=== PATIENT | male | born 1955 | race Asian ===

== ENCOUNTER 2017-05-19 11:13 | Day surgery (SDC) | payer MEDICAID ==
[2017-05-19] MEDS ORDERED: LIDOCAINE 1% 2 ML INJ ID PRN (11:34)
[2017-05-19] MEDS ORDERED: LR 1,000 ML IV ONE (11:34)
[2017-05-19 12:37] VITALS: PULSE 65
--- NOTE | 2017-05-19 12:48 | PDANEPAE ---
ANE Past Medical History - Cardiovascular History Hx Hypertension: Yes Hx Arrhythmias: No Hx Chest Pain: No Hx Coronary Artery / Peripheral Vascular Disease: No Hx CHF / Valvular Disease: No Hx Palpitations: No Cardiovascular History Comment: pcp monitors bp meds - Pulmonary History Hx COPD: No Hx Asthma/Reactive Airway Disease: No Hx Recent Upper Respiratory Infection: No Hx Oxygen in Use at Home: No Hx Sleep Apnea: No Sleep Apnea Screening Result - Last Documented: Positive - Neurologic History Hx Cerebrovascular Accident: No Hx Seizures: No Hx Dementia: No Neurologic History Comment: spinal cord injury- no injury noted just started one day and he went to the er 07/17/2003. pt is a paraplegic - Endocrine History Hx Diabetes: No Endocrine History Comment: type 2 - Renal History Hx Renal Disorders: Yes Renal History Comment: neurogenic bladder uses suprapubic catheter. left kidney is missing- since - Liver History Hx Hepatic Disorders: No - Neurological & Psychiatric Hx Hx Neurological and Psychiatric Disorders: No Neurological / Psychiatric History Comment: peripheral neuropathy. depression - Cancer History Hx Cancer: No - Congenital Disorder History Hx Congenital Disorders: No - GI History Hx Gastrointestinal Disorders: Yes Gastrointestinal History Comment: uses bowel program q3 days to help with regularity - Other Health History Other Health History: none - Chronic Pain History Chronic Pain: Yes (occ burning pain around chest from spinal cord injury) - Surgical History Prior Surgeries: 2003 back sx T7/8 spinal cord to remove blood clot. 2009 R ORIF femur fracture ANE Review of Systems Review of Systems: - Exercise capacity METS (RN): 1 METS ANE Patient History - Allergies Allergies/Adverse Reactions: No Known Allergies Allergy (Verified 04/15/17 14:09) - Home Medications Home Medications: Baclofen BID 06/06/09 [Last Taken 05/18/17 17:00] Aspirin 81mg (*) 04/15/17 [Last Taken 05/19/17 08:00] LYRICA TID 04/15/17 [Last Taken 05/19/17 08:00] Losartan Potassium 04/15/17 [Last Taken 05/19/17 08:00] Pravastatin Sodium 04/15/17 [Last Taken 05/17/17] - NPO status NPO Since - Liquids (Date): 05/18/17 NPO Since - Liquids (Time): 19:00 NPO Since - Solids (Date): 05/17/17 NPO Since - Solids (Time): 17:00 - Smoking Hx Smoking Status: Never smoked - Family Anes Hx Family Hx Anesthesia Complications: unknown ANE Labs/Vital Signs - Vital Signs Blood Pressure: 116/73 Heart Rate: 65 Respiratory Rate: 16 O2 Sat (%): 96 Height: 195.58 cm Weight: 74.843 kg ANE Physical Exam - Airway Neck exam: FROM Mallampati Score: Class 2 Mouth exam: dentures - Pulmonary Pulmonary: no respiratory distress, no rales or rhonchi, clear to auscultation - Cardiovascular Cardiovascular: regular rate and rhythym, no murmur, rub, or gallop - ASA Status ASA Status: III ANE Anesthesia Plan Anesthesia Plan: GA with mask
[2017-05-19] MEDS ORDERED: PROPOFOL 200 MG/20 ML VIAL ONE (13:10)
[2017-05-19] MEDS ORDERED: PROMETHAZINE HCL 25 MG/ML INJ IVP PRN (13:23)
[2017-05-19] MEDS ORDERED: LR 500 ML IV PRN (13:23)
[2017-05-19] MEDS ORDERED: ONDANSETRON 4 MG/2 ML VIAL IVP PRN (13:23)
[2017-05-19] MEDS ORDERED: fentaNYL 100 MCG/2 ML INJ IVP PRN (13:23)
[2017-05-19] MEDS ORDERED: NALOXONE HCL 0.4 MG/ML INJ IVP PRN (13:23)
[2017-05-19] MEDS ORDERED: INDOMETHACIN 50 MG SUPP PR PRN (13:54)
--- NOTE | 2017-05-19 13:54 | PDGENHP ---
History & Physical Chief Complaint: screening History of Present Illness: 62 year old male presents for screening colonoscopy. Pertinent Past, Social, Family History: SoHx: no cigs. PMHx: paraplegia, one kideny. FaMHx: No crc Relevant Physical Exam: HEENT: anicteric. CV: RRR +s1s2. Lungs: CTAB. Abd: soft, nt, + suprapubic catheter Cardiorespiratory Assessment: ASA 3
--- NOTE | 2017-05-19 13:59 | POSTANESTH ---
Post Anesthetic Evaluation Cardiovascular Status: Normal, Stable, Similar to Pre-Op Cond Respiratory Status: Normal, Stable, Similar to Pre-op Cond. Level of Consciousness/Mental Status: Can Participate in Eval, Moderately Sleepy Pain Control: Adequate, Prn Tx Ordered Nausea/Vomiting Control: Adequate, Prn Tx Ordered Complications Possibly Related to Anesthesia: None Noted
[2017-05-19] MEDS ORDERED: NS 500 ML IV SCH (14:00)
--- NOTE | 2017-05-19 14:10 | GIREPORT ---
[facility] - Endoscopy Department Patient Name: Mulugeta Giraldo Procedure Date: 05/19/2017 1:16 PM Patient Type: Outpatient Attending MD/ ER Physician: Ramos Pro MD Procedure: Colonoscopy Indications: Screening for colorectal malignant neoplasm Patient Profile: 62 year old male presents for screening colonoscopy. Providers: Ramos Pro MD Medicines: Monitored Anesthesia Care Complications: No immediate complications. Estimated blood loss: None. Description of Procedure: After obtaining informed consent, the scope was passed under direct vision. Throughout the proce dure, the patient's blood pressure, pulse, and oxygen saturations were monitored continuously. The Colonoscope with irrigation channel was introduced through the anus and advanced to the cecum, identified by appendiceal orifice and ileocecal valve. The colonoscopy was performed without difficulty. The patient tolerated the procedure well. The quality of the bowel preparation was g ood. The ileocecal valve, appendiceal orifice, and rectum were photographed. Findings: The perianal and digital rectal examinations were normal. Pertinent negatives include no palpabl e rectal lesions. A few small-mouthed diverticula were found in the sigmoid colon. Estimated Blood Loss: Estimated blood loss: none. Post Op Diagnosis: - Diverticulosis in the sigmoid colon. - No specimens collected. Recommendation: - Discharge patient to home (with escort). - Resume previous diet. - Continue present medications. - Repeat colonoscopy in 10 years for surveillance based on pathology re rohit. Attending Participation: I personally performed the entire procedure. Ramos Pro MD Ramos Pro MD 05/19/2017 2:10:20 PM Number of Addenda: 0 Note Initiated On: 05/19/2017 1:16 PM Total Procedure Duration Time 0 hours 30 minutes 48 seconds [email or web address]
[2017-05-19 15:42] VITALS: BP 120/84; RESP 15; O2SAT 99
[2017-05-19 16:19] VITALS: TEMP 97.5
== END 2017-05-19 16:00 | disposition home or self-care (01) ==
LOC: FSGY 11:13
PROVIDERS: ATTEND Internal Medicine Gastroenterology
PROC: 0DJD8ZZ Inspection of Lower Intestinal Tract, Via Natural or Artificial Opening Endoscopic (ICD-10-PCS; principal; 2017-05-19 12:45)
DX: Z12.11 Encounter for screening for malignant neoplasm of colon (principal); K57.30 Diverticulosis of large intestine without perforation or abscess without bleeding; G82.20 Paraplegia, unspecified; Q60.0 Renal agenesis, unilateral; I10 Essential (primary) hypertension; E11.9 Type 2 diabetes mellitus without complications; N31.9 Neuromuscular dysfunction of bladder, unspecified
CPT/HCPCS: J2704

== ENCOUNTER 2017-11-28 11:08 | Observation (INO) | payer MEDICAID ==
[2017-11-28 12:12] LABS: PLATELET COUNT 181 10^3/uL (150-400)
--- NOTE | 2017-11-28 13:24 | EDPHY ---
H & P Stated Complaint: abd pain Time Seen by Provider: 11/28/17 11:42 HPI/ROS: CHIEF COMPLAINT: Abdominal pain HISTORY OF PRESENT ILLNESS: The patient presents the ED with a several day history of abdominal pain. The patient has a history of paraplegia from a spinal clot. He has been immobilized in wheelchair for some time. The patient has a neurogenic bladder and a chronic suprapubic catheter. The patient does have problems with chronic constipation and is on a fairly aggressive outpatient bowel regimen. The patient denies any fever. He complains of intermittent crampy abdominal pain. He reports he is having increasing frequency of pain which he describes as a sharp epigastric pain which radiates to the right and left quadrant. REVIEW OF SYSTEMS: A comprehensive 10 point review of systems is otherwise negative aside from elements mentioned in the history of present illness. Source: Patient - Personal History Current Tetanus/Diphtheria Vaccine: Unsure Current Tetanus Diphtheria and Acellular Pertussis (TDAP): Unsure Tetanus Vaccine Date: 20 YEARS AGO - Medical/Surgical History Hx Asthma: No Hx Chronic Respiratory Disease: No Hx Diabetes: No Hx Cardiac Disease: No Hx Renal Disease: No Hx Cirrhosis: No Hx Alcoholism: No Hx HIV/AIDS: No Hx Splenectomy or Spleen Trauma: No Other PMH: spinal cord injury - Social History Smoking Status: Never smoked - Physical Exam Exam: General Appearance: Alert, no distress Eyes: Pupils equal and round no pallor or injection ENT, Mouth: Mucous membranes moist Respiratory: There are no retractions, lungs are clear to auscultation Cardiovascular: Regular rate and rhythm Gastrointestinal: Abdomen is soft and nontender, no masses, bowel sounds normal , suprapubic catheter Neurological: Chronic lower extremity weakness and sensory changes consistent with his known spinal cord injury Skin: Warm and dry, no rashes Musculoskeletal: Neck is supple nontender Extremities: symmetrical, full range of motion Constitutional: Initial Vital Signs Temperature (C) 38 C 11/28/17 11:20 Heart Rate 104 H 11/28/17 11:20 Respiratory Rate 16 11/28/17 11:20 Blood Pressure 130/78 H 11/28/17 11:20 O2 Sat (%) 97 11/28/17 11:20 O2 Delivery Mode Room Air Allergies/Adverse Reactions: No Known Allergies Allergy (Verified 11/28/17 11:20) Home Medications: Medication Instructions Recorded Baclofen [Baclofen 20 mg (*)] 20 mg PO TID #0 06/06/09 Aspirin [Aspirin 81mg (*)] 81 mg PO DAILY #0 04/15/17 Losartan Potassium [Cozaar 25 mg 25 mg PO DAILY #0 04/15/17 (*)] Pravastatin Sodium [Pravachol] 40 mg PO HS #0 04/15/17 Pregabalin [Lyrica 100mg (*)] 200 mg PO TID #0 04/15/17 Tears/Dextran 70/Hypromellose 1 drop EACHEYE Q2 PRN 11/28/17 [Natural Balance Tears (*)] Medical Decision Making - Diagnostics Imaging Results: Imaging Impressions Abdomen X-Ray 11/28/17 11:44 Impression: 1. Mild to moderate constipation suspected. 2. Gas present within mildly prominent loops of small bowel left mid abdomen. This is nonspecific. Early changes of partial SBO are felt to be possible but less likely. If indicated, consider follow-up. Abdomen CT 11/28/17 13:24 Impression: 1. Constipation. 2. No CT evidence of appendicitis, abscess or bowel obstruction. 3. Atrophic left kidney. No right nephrolithiasis or hydronephrosis. 4. No abdominal abscess, fluid collection, or significant adenopathy. Findings and recommendations discussed with Emergency Department physician, Dr. Romulo Carver at 1406 hours on November 28, 2017. Final report concurs with initial preliminary interpretation. ED Course/Re-evaluation: The patient presents to the ED with complaints of acute intermittent sharp bilateral upper quadrant pain for the past several days worsening over the past day. The patient arrives with a temperature of 38.0 degrees orally. I find the patient's abdominal examination to be benign. The patient does have sensory losses a result of his spinal cord injury. The patient was noted to have fairly significant leukocytosis. Given his complaints a CT scan of the abdomen pelvis was obtained which demonstrates no evidence of diverticulitis, radiographic pyelonephritis or appendicitis. I re-evaluated the patient at 2:20 p.m.. He was noted to now have an oral temperature of 38.9 degrees. Blood cultures x2 have been obtained. A screening venous lactate has been ordered. The patient will be admitted to the hospital. Consultation is made with Dr. Arnol Barboza from the hospitalist service. Initial venous lactate is reassuring at 1.7. The patient will be admitted off antibiotics for observation. Differential Diagnosis: Differential diagnosis considered includes bacteremia, dehydration, urinary tract infection, diverticulitis, appendicitis, perforation, obstruction - Data Points Laboratory Results: Laboratory Results 11/28/17 12:06 11/28/17 12:06 11/28/17 11/28/17 11/28/17 12:40 12:06 12:06 WBC 16.49 10^3/uL H 10^3/uL (3.80-9.50) RBC 4.49 10^6/uL 10^6/uL (4.40-6.38) Hgb 13.8 g/dL g/dL (13.7-17.5) Hct 39.6 % L % (40.0-51.0) MCV 88.2 fL fL (81.5-99.8) MCH 30.7 pg pg (27.9-34.1) MCHC 34.8 g/dL g/dL (32.4-36.7) RDW 13.3 % % (11.5-15.2) Plt Count 181 10^3/uL 10^3/uL (150-400) MPV 9.4 fL fL (8.7-11.7) Neut % (Auto) 77.2 % H % (39.3-74.2) Lymph % (Auto) 12.0 % L % (15.0-45.0) [place] % (Auto) 9.3 % % (4.5-13.0) Eos % (Auto) 0.8 % % (0.6-7.6) Baso % (Auto) 0.3 % % (0.3-1.7) Nucleat RBC Rel Count 0.0 % % (0.0-0.2) Absolute Neuts (auto) 12.72 10^3/uL H 10^3/uL (1.70-6.50) Absolute Lymphs (auto) 1.98 10^3/uL 10^3/uL (1.00-3.00) Absolute Monos (auto) 1.54 10^3/uL H 10^3/uL (0.30-0.80) Absolute Eos (auto) 0.14 10^3/uL 10^3/uL (0.03-0.40) Absolute Basos (auto) 0.05 10^3/uL 10^3/uL (0.02-0.10) Absolute Nucleated RBC 0.00 10^3/uL 10^3/uL (0-0.01) Immature Gran % 0.4 % % (0.0-1.1) Immature Gran # 0.06 10^3/uL 10^3/uL (0.00-0.10) Sodium 139 mEq/L mEq/L (135-145) Potassium 4.3 mEq/L mEq/L (3.5-5.2) Chloride 101 mEq/L mEq/L (97-110) Carbon Dioxide 26 mEq/l mEq/l (22-31) Anion Gap 12 mEq/L mEq/L (8-16) BUN 10 mg/dL mg/dL (7-23) Creatinine 0.7 mg/dL mg/dL (0.7-1.3) Estimated GFR > 60 Glucose 89 mg/dL mg/dL (70-100) Calcium 9.1 mg/dL mg/dL (8.5-10.4) Urine Color YELLOW Urine Appearance HAZY Urine pH 7.0 (5.0-7.5) Ur Specific Brush 1.006 (1.002-1.030) Urine Protein NEGATIVE (NEGATIVE) Urine Ketones NEGATIVE (NEGATIVE) Urine Blood 1+ H (NEGATIVE) Urine Nitrate POSITIVE H (NEGATIVE) Urine Bilirubin NEGATIVE (NEGATIVE) Urine Urobilinogen NEGATIVE EU EU (0.2-1.0) Ur Leukocyte Esterase 3+ H (NEGATIVE) Urine RBC 1-3 /hpf /hpf (0-3) Urine WBC 15-25 /hpf H /hpf (0-3) Ur Epithelial Cells NONE SEEN /lpf /lpf (NONE-1+) Urine Bacteria TRACE /hpf H /hpf (NONE SEEN) Urine Glucose NEGATIVE (NEGATIVE) Departure - Departure Disposition: [facility] Acute Clinical Impression: Paraplegia, Fever, Leukocytosis Condition: Fair
[2017-11-28] MEDS ORDERED: IOPAMIDOL (ISOVUE-300) 100 ML BTL ONE (13:32)
[2017-11-28] MEDS ORDERED: ONDANSETRON 4 MG/2 ML VIAL IVP PRN (14:51)
[2017-11-28] MEDS ORDERED: ONDANSETRON DISINTEGRATING 4 MG TAB PO PRN (14:51)
[2017-11-28] MEDS ORDERED: TEARS/DEXTRAN 70/HYPROMELLOSE 15 ML OPHT.BTL EACHEYE PRN (14:52)
--- NOTE | 2017-11-28 15:40 | GHP ---
[f rep st] HISTORY AND PHYSICAL DATE OF ADMISSION: 11/28/2017 The patient is a pleasant 62-year-old gentleman who is a T7 quad since 2003 or 2002, it is not entire ly clear. This was secondary to a blood clot in his spine. He presents today with fever and abdominal pain. He says the abdominal pain is bandlike around his a bdomen at about the T7 level. He notes these are similar feelings to when he actually had his clot. He had shaking chills this morning, and he became febrile in the emergency department to 38.9. He h as an indwelling suprapubic catheter and notably, he has never been admitted here for a UTI. His cat heter was last changed about 3 weeks ago. He has a scheduled bowel movement day tomorrow. He has no t had diarrhea. He has not had cough. He has not had sputum. He has not had rash on his skin. He has been eating and drinking okay. REVIEW OF SYSTEMS: Complete 10-point review of systems conducted and negative except as noted in the HPI. PAST MEDICAL HISTORY: Paraplegia T7-T8, type 2 diabetes, neurogenic bladder, hyperlipidemia, partial nephrectomy, depressive disorder, gastritis. He has a history of hip fracture repair. ALLERGIES: No known drug allergies. HOME MEDICATIONS: Aspirin, baclofen, losartan, pravastatin, pregabalin, and Natural Balance Tears. SOCIAL HISTORY: Rare alcohol. No tobacco. FAMILY HISTORY: Parents . PHYSICAL EXAMINATION: VITAL SIGNS: Temp 38.9, blood pressure 115/68, pulse rate 86, breathing 16 ti mes a minute, 95% on room air. GENERAL: No acute distress. HEENT: Sclerae anicteric. Oropharynx clear. Mucous membranes are moist. NECK: Supple, without lymphadenopathy or JVD. LUNGS: Clear to auscultation anterolaterally. HEART: S1, S2. Not tachycardic. ABDOMEN: Soft. There is no rebou nd or guarding. Bowel sounds are present. There is fullness suggestive of constipation. LOWER EXTR EMITIES: Without edema. His suprapubic catheter site is clean, dry and intact without purulence or erythema. His skin in his groin is without erythema or odor or skin breakdown. Just left of his glu teal cleft he has a 1 cm stage 1 decubitus that is present on admission. It does not look infected. It is a clean base and actually appears to be healing. NEUROLOGIC: Notable for incomplete quadripl egia. LABS: White count 16.5 with a left shift, hematocrit 39.6, platelets are 181,000. Sodium 139, potas sium 4.3, chloride 101, bicarb 26, BUN 10, creatinine 0.7, glucose 89. LFTs are pending. Abdominal x-ray interpreted by me shows constipation. No free air. Abdominal CT images are reviewed and interpreted by me, show constipation. No evidence of appendicit is, abscess or bowel obstruction. Atrophic left kidney and no abdominal abscess, fluid collection or significant adenopathy. Biliary system is without ductal dilation. Discussed the case with Dr. Matthew Carver. ASSESSMENT/PLAN: A 62-year-old gentleman with T7 quadriplegia, presents with fever. 1. Fever, uncertain source. His urine looks good. He does have a few white cells, but the urine it self is very clear and is not suggestive of infection. I think it is reasonable to hold off on antib iotics. Blood cultures have been drawn. I will check a chest x-ray and LFTs for completeness sake. 2. It is worth noting this is similar to his presentation of his clot prior and certainly if his blo od cultures become positive, then imaging of his spine would be appropriate. For now will go ahead a nd hold off. 3. Suprapubic catheter is changed monthly. 4. Diabetes. He has a normal blood sugar here. We will follow. 5. Quadriplegia. Tomorrow he is due to have a bowel movement. We will allow him to have his bowel protocol. 6. Disposition: Observation status. 7. Prophylaxis: Patient warrants VTE prophylaxis if in the hospital longer than 24 hours. /[id number]/MODL
[2017-11-28] MEDS: BACLOFEN 20 MG TAB PO SCH ×2 (16:39→20:48)
[2017-11-28] MEDS: ACETAMINOPHEN 325 MG TAB PO PRN ×2 (16:39→20:48)
[2017-11-28] MEDS: PREGABALIN 100 MG CAP PO SCH ×2 (16:39→20:47)
[2017-11-28] MEDS: HYDROmorphone HCL/NS 0.5 MG/ML SYR IVP PRN ×2 (18:12→21:07)
[2017-11-28] MEDS ORDERED: PRAVASTATIN SODIUM 40 MG TAB PO SCH (21:00)
[2017-11-29 05:21] LABS: PLATELET COUNT 159 10^3/uL (150-400)
[2017-11-29] MEDS ORDERED: LOSARTAN POTASSIUM 25 MG TAB PO SCH (09:00)
[2017-11-29] MEDS ORDERED: ASPIRIN 81 MG CHEWABLE TAB PO SCH (09:00)
[2017-11-29] MEDS: PREGABALIN 100 MG CAP PO SCH ×2 (09:07→14:39)
[2017-11-29] MEDS: ACETAMINOPHEN 325 MG TAB PO PRN ×2 (09:07→14:40)
[2017-11-29] MEDS: BACLOFEN 20 MG TAB PO SCH ×2 (09:08→14:40)
[2017-11-29] MEDS ORDERED: BISACODYL 10 MG SUPP PR ONE (09:15)
--- NOTE | 2017-11-29 11:19 | ASMTCMCOM ---
CM Note CM Note Notes: Pt is a quadrapalegic, has use of arms, secondary to spinal clot several years ago. Pt lives with and children who take care of him. Pt had homecare before but family helps him now. PT/OT ordered, CM w/f. Pt speaks some Swedish and speaks very little. DC Plan: TBD Date Signed: 11/29/2017 11:19 AM Electronically Signed By:Liza Zabala RN
[2017-11-29] MEDS ORDERED: NS 1,000 ML IV ONE (11:59)
[2017-11-29] MEDS ORDERED: NS 1,000 ML IV SCH (12:00)
[2017-11-29 13:10] VITALS: BP 104/60
--- NOTE | 2017-11-29 14:22 | ASMTCMCOM ---
CM Note CM Note Notes: Spoke w/MD, pt will dc back home w/family today, no homecare needs. CM available for any changes. DC Plan: Independent Date Signed: 11/29/2017 02:21 PM Electronically Signed By:Liza Zabala RN
== END 2017-11-29 15:07 | disposition home or self-care (01) ==
LOC: F3E 15:22
PROVIDERS: ADMIT Internal Medicine; ATTEND Internal Medicine
DX: K59.09 Other constipation (principal); N31.9 Neuromuscular dysfunction of bladder, unspecified; G82.20 Paraplegia, unspecified; S24.153S Other incomplete lesion at T7-T10 level of thoracic spinal cord, sequela; E11.9 Type 2 diabetes mellitus without complications; E78.5 Hyperlipidemia, unspecified; F32.9 Major depressive disorder, single episode, unspecified; D72.829 Elevated white blood cell count, unspecified; Z96.0 Presence of urogenital implants
CPT/HCPCS: 71046; 74018; 74177; 97161; 97166; 99285; G0378; 97116-GP; J1170; Q9967